=== PATIENT | male | born 1950 | race Caucasian/White ===

== ENCOUNTER → 2017-03-17 15:05 | Outpatient (CLI) | payer MEDICARE, OTHER | END | disposition home or self-care (01) | LOC: D.CT 15:05 | DX: R55 Syncope and collapse (principal) ==

== ENCOUNTER 2018-01-17 20:06 | Inpatient (IN) | payer MEDICARE, OTHER ==
[~2018-01-17] VITALS: Ht 175.3 cm; Wt 86.4 kg
--- NOTE | ~2018-01-17 | HEMODYNAMI ---
PATIENT:PEGGY COX MEDICAL RECORD: [id number] : 48 [id number] ADMISSION DATE: 01/18/18 Generatedon:01/18/201810:57 Patient name: PEGGY COX Patient #: [id number] SSN: : 1950 Date of study: 01/18/2018 Page: Of Hemodynamic Procedure Report Patient Data Patient Demographics Procedure consent was obtained First Name: PEGGY Gender: Male Last Name: KENNY : 1950 Patient #: [id number] Age: 67 year(s) Race: Unknown Additional ID: [id number] Contact details Address: [address] [place] [address] State: [place] City: [facility] Zip code: [address] Past Medical History Allergies Allergen Reaction Date Comments Reported Shellfish 01/18/2018 Admission Admission Data Admission Date: 01/18/2018 Admission Time: 3:43 Room #: D.2314 Procedure Procedure Types Cath Procedure Diagnostic Procedure LHC LH w/Coronaries Procedure Description Procedure Date Procedure Date: 01/18/2018 Procedure Start Time: 10:23 Procedure End Time: 10:57 Procedure Staff Name Function Barry Warren MD Performing Physician Viky Styles RT Monitor Allan Aragon RN Nurse Paula Baker RT Scrub Procedure Data Cath Procedure Fluoroscopy Diagnostic fluoroscopy Total fluoroscopy Time: 3.2 time: 3.2 min min Diagnostic fluoroscopy Total fluoroscopy dose: 466 dose: 466 mGy mGy Contrast Material Contrast Material Type Amount (ml) Isovue 300 47 Entry Location Entry Primary Successful Side Size Upsize Upsize Entry Closure Last ccessful Closure Location (Fr) 1 (Fr) 2 (Fr) Remarks Device Remarks Radial Right 6 Fr Mechanical artery Short Compression Estimated blood loss: 5 ml Diagnostic catheters Device Type Used For End Catheter Placement DIAGNOSTIC Geoffrey 110cm Procedure 5Fr catheter ([id number]) DIAGNOSTIC [place] 110cm 5 Procedure Fr catheter ([id number]) Procedure Complications No complications Procedure Medications Medication Administration Route Dosage 0.9% NaCl I.V. 100 ml/hr Oxygen NC 2 l/min Heparin Flush Bag added to field 2 bags (1000units/500ml NS) Lidocaine 2% added to field 20 Radial Cocktail added to field 1 syringe (Verapomil 2mg/Nitro 400mcg/Heparin 1500units) Radial Cocktail I.A. 1 syringe (Verapomil 2mg/Nitro 400mcg/Heparin 1500units) Hemodynamics Rest Heart Rate: 69 (bpm) Pressure Samples Time Site Value (mmHg) Purpose Heart Use Rate(bpm) 10:25 LV 140/17,18 EDP 87 Gradients Valve Time Site Site Mean SEP/DFP Peak To Heart Use 1 2 (mmHg) (sec/min) Peak Rate (mmHg) (bpm) Aortic 10:25 LV AO 90 Snapshots Pre Cath Intra NCS Post Cath Vital Signs Time Heart Resp SPO2 etCO2 NIBP (mmHg) Rhythm Pain Sedation Rate (ipm) (%) (mmHg) Status Level (bpm) 10:10:20 68 18 97 0 147/85(109) NSR 0 (11) 10(A) , No pain 10:15:04 69 17 100 0 129/82(117) NSR 0 (11) 10(A) , No pain 10:19:47 70 13 100 0 139/73(107) NSR 0 (11) 9(A) , No pain 10:24:28 74 14 99 0 110/70(88) NSR 0 (11) 9(A) , No pain 10:29:39 73 13 99 0 132/83(103) NSR 0 (11) 9(A) , No pain 10:34:20 72 16 100 0 133/68(103) NSR 0 (11) 9(A) , No pain 10:39:02 69 14 100 0 132/68(110) NSR 0 (11) 9(A) , No pain Medications Time Medication Route Dose Verified Delivered Reason Notes Effectiveness by by 10:14:13 0.9% NaCl I.V. 100 Allan Allan Per ml/hr Mahesh Aragon physician RN RN 10:14:23 Oxygen NC 2 l/min Lalan Allan Per Mahesh Aragon physician RN RN 10:14:34 Heparin Flush added 2 bags Allan Allan used for Bag to Mahesh Aragon procedure (1000units/500ml field RN RN NS) 10:14:43 Lidocaine 2% added 20ml Allan Allan for local to vial Yaniraigan Lorsharath anesthetic field RN RN 10:14:54 Radial Cocktail added 1 Allan Allan used for (Verapomil to syringe Lorigan Lorigan procedure 2mg/Nitro field RN RN 400mcg/Heparin 1500units) 10:23:26 Radial Cocktail I.A. 1 Allan Allan for (Verapomil syringe Lorigan Lorigan vasodilation 2mg/Nitro RN RN 400mcg/Heparin 1500units) Procedure Log Time Note 9:45:49 Time tracking: Regular hours (M-F 7:00 - 5:00) 9:45:52 Plan of Care:Hemodynamics will remain stable., Cardiac rhythm will remain stable., Comfort level will be maintained., Respiratory function will remain adequate., Patient/ family verbilizes understanding of procedure., Procedure tolerated without complication., Recovers from procedure without complications.. 9:50:24 Signed procedure consent form obtained from patient. 9:50:28 H&P Date Dictated: 01/18/2018 Within 30 days and on chart.. 9:50:35 Patient allergic to Shellfish 9:50:39 Viky Styles RT(R) sent for patient. Start room use. 10:04:39 Patient received from ICU to CCL 1 Alert and oriented. Tansferred to table in Supine position. 10:04:40 Warm blankets applied, and gurwinder hugger turned on for patient comfort. 10:04:41 Correct patient and procedure confirmed by team. 10:04:43 ECG and BP/O2 sat monitors applied to patient. 10:04:44 Full Disclosure recording started 10:08:50 Vital chart was started 10:14:13 0.9% NaCl 100 ml/hr I.V. was administered by Allan Aragon RN; Per physician; 10:14:23 Oxygen 2 l/min NC was administered by Allan Aragon RN; Per physician; 10:14:34 Heparin Flush Bag (1000units/500ml NS) 2 bags added to field was administered by Allan Aragon RN; used for procedure; 10:14:43 Lidocaine 2% 20ml vial added to field was administered by Allan Aragon RN; for local anesthetic; 10:14:54 Radial Cocktail (Verapomil 2mg/Nitro 400mcg/Heparin 1500units) 1 syringe added to field was administered by Allan Aragon RN; used for procedure; 10:16:04 Baseline sample Acquired. 10:16:07 Rhythm: sinus rhythm 10:16:10 Pre-procedure instructions explained to patient. 10:16:10 Pre-op teaching completed and patient verbalized understanding. 10:16:12 Family in waiting room. 10:16:14 Patient NPO since Midnight. 10:16:29 allergic to shellfish 10:16:32 Was the patient premedicated? Yes 10:16:34 Is patient on blood thinner?Yes 10:16:42 PRE LOADED PLAVIX 10:16:44 Patient diabetic? No. 10:16:46 Previous problem with sedation/anesthesia? No ? 10:16:48 Snore? Yes 10:16:49 Sleep apnea? Yes 10:16:50 Deviated septum? No 10:16:51 Opens mouth fully? Yes 10:16:51 Sticks out tongue? Yes 10:16:53 Airway obstruction? No ? 10:16:55 Dentures? No ? 10:16:57 Modified Pato's test Ulnar < 7 seconds 10:16:58 Patient pain scale 0/10 ?. 10:17:02 IV patent on arrival in right hand with 0.9% NaCl at [facility]. 10:17:05 Lab results completed and on chart. 10:17:07 Right Radial & Right Groin area was prepped with chlora-prep and draped in sterile fashion 10:17:09 Alarms reviewed by R. N. 10:17:09 Sharps counted by scrub and verified by R.N. 10:17:10 --------ALL STOP TIME OUT------ 10:17:11 Final Timeout: patient, procedure, and site verified with staff and physician. All members of the team are in agreement. 10:17:12 Right Radial & Right Groin site verified by team. 10:17:15 Physical assessment completed. ASA score P 2 - A patient with mild systemic disease as per Barry Warren MD. 10:17:19 Sedation plan: IV Moderate Sedation Medication:Versed, Fentanyl 10:17:22 Use device set Radial Dx or PCI 10:17:23 ACIST Syringe (78009) opened to sterile field. 10:17:25 Bag Decanter (2002S) opened to sterile field. 10:17:25 ACIST Hand Control (09610) opened to sterile field. 10:17:26 ACIST Manifold (29481) opened to sterile field. 10:17:27 Tegaderm 4 x 4 (1626W) opened to sterile field. 10:17:29 Medline Cath Pack ([id number]) opened to sterile field. 10:17:30 DIAGNOSTIC WIRE .035 260cm J wire (005697) opened to sterile field. 10:17:30 MBrace Wrist Support ([id number]) opened to sterile field. 10:17:32 SHEATH 6Fr Prelude Radial ([id number]) opened to sterile field. 10:22:48 Procedure started. 10:23:00 Local anesthetic to right radial artery with Lidocaine 2% by Barry Warren MD.INITIAL ACCESS ONLY 10:23:26 Radial Cocktail (Verapomil 2mg/Nitro 400mcg/Heparin 1500units) 1 syringe I.A. was administered by Allan Aragon RN; for vasodilation; 10:23:31 A 6 Fr Short sheath was inserted into the Right Radial artery 10:23:45 Zero performed for pressure channel P1 10:24:01 A DIAGNOSTIC Geoffrey 110cm 5Fr catheter (377416) was advanced over the wire and used for Procedure. 10:25:23 LV gram done using PATEL 10:25:26 Injector settings: Ml/sec: 12, Volume: 8, 10:25:27 LV hemodynamics recorded. 10:25:51 EF : 60 % 10:27:16 RCA angiography performed. 10:28:38 UNABLE TO ENGAGE LEFT CORONARY 10:28:39 Catheter exchanged over wire. 10:29:14 A DIAGNOSTIC [place] 110cm 5 Fr catheter (326725) was advanced over the wire and used for Procedure. 10:31:30 LCA angiography performed. 10:31:38 Catheter removed. 10:31:42 Procedure ended.(Physican Out) 10:34:34 TR BAND Standard ([id number]) opened to sterile field. 10:34:41 Sheath removed intact; hemostasis achieved with Mechanical Compression to the Right Radial artery. 10:35:51 Fluoroscopy time 03.20 minutes. 10:35:54 Fluoroscopy dose: 466 mGy 10:35:54 Flurop Dose total: 466 10:37:46 Contrast amount:Isovue 300 47ml. 10:37:48 Sharps counted by scrub and verified by R.N. 10:37:50 TR band inflated with 10cc of air. 10:37:54 Post-procedure physical assessment completed. ASA score P 2 - A patient with mild systemic disease as per Barry Warren MD. 10:38:16 Post procedure rhythm: sinus rhythm 10:38:20 Estimated blood loss: 5 ml 10:38:21 Post procedure instruction explained to patient.Patient verbalizes understanding. 10:38:22 Patient needs reinforcement of post procedure teaching. 10:39:09 Procedure and supply charges have been captured, reviewed, submitted and are correct. 10:39:12 Procedure Complication : No complications 10:39:14 Vital chart was stopped 10:39:14 See physician's report for complete and final results. 10:57:08 Report given to ICU. 10:57:11 Patient transfered to ICU with Bed. 10:57:12 Procedure ended. 10:57:12 Full Disclosure recording stopped 10:57:17 End room use (Document Last) Device Usage Item Name Manufacture Quantity Catalog Number Hospital Part Current M inimal Lot# / Charge Number Stock Stock Serial# Code ACIST Syringe Acist 1 13725 460582 822396 433450 2 0 (91068) [employer] Inc Bag Decanter Microtek 1 2001S 628437 27557 591595 5 (2001S) Medical Inc. ACIST Hand Acist 1 01138 425080 012540 773626 5 Control (65415) Medical Systems Inc ACIST Manifold Acist 1 25507 868752 273467 189979 5 (16969) Medical Systems Inc Tegaderm 4 x 4 3M 1 1626W 417287 426411 657721 5 (1626W) Medline Cath Cardinal 1 [id number] 577195 31419 668928 5 Pack Health ([id number]) DIAGNOSTIC WIRE St Vel 1 110623 611877 617013 824662 3 0 .035 260cm J wire (234503) MBrace Wrist Advanced 1 140-0250-00 990861 22237 300800 5 Support Vascular ([id number]) Dynamics SHEATH 6Fr Merit 1 [id number] 778905 254967 490893 5 Prelude Radial Medical ([id number]) DIAGNOSTIC Terumo 1 40-0963 708718 261083 512145 5 Geoffrey 110cm 5Fr catheter (242680) DIAGNOSTIC Terumo 1 40-2087 300676 731246 346740 5 [place] 110cm 5 Fr catheter (997772) TR BAND Terumo 1 [id number] 021612 672357 720603 4 0 Standard (MNY73VOS) Signature Audit [place] Stage Time Signature Unsigned Intra-Procedure 01/18/2018 Viky Styles 10:57:40 AM RT(R) Signatures Monitor : Viky Styles Signature : RT Date : Time : [address] [address]
--- NOTE | ~2018-01-17 | EC ---
PATIENT:PEGGY COX DATE OF SERVICE: 01/18/18 SEX: M MEDICAL RECORD: [id number] DATE OF : [birth year] LOCATION:D.M2 D.211 AGE OF PATIENT: 67 ADMISSION DATE: 01/18/18 REFERRING PHYSICIAN: INTERPRETING PHYSICIAN: ROSENDO COLUNGA MD ECHOCARDIOGRAM REPORT ECHO CHARGES 4 ECHO COMPLETE Date: 01/19 CLINICAL DIAGNOSIS: GA ECHOCARDIOGRAPHIC MEASUREMENTS (adult normal given) AC root (d.<3.7cm) 3.5 cm LV Septum d (<1.2 cm> 1.9 cm Valve Excursion 2.0 cm LV Septum (systole) 2.5 cm Left Atria (s.<4.0cm> 3.5 cm LVPW d(<1.2cm) 1.6 cm RV (d.<2.3cm) 2.1 cm LVPW (sytole) 2.1 cm LV diastole(<5.6CM) 4.9 cm MV E-F(>70mm/sec) cm LV systole 3.3 cm LVOT Diameter 1.8 cm MV exc.(>10mm) cm Est.ejection fraction (50-75%) % DOPPLER: LVIT cm/sec A 56.0 cm/sec E 63.0 cm/sec LA cm/sec RVSP 30.0 mmHg LVOT 81.0 cm/sec AOP1/2T m/s Asc. Ao 150 cm/sec RVOT 67.0 cm/sec RA cm/sec PA 117 cm/sec AV Gradient Peak 9.0 mmHg AV Mean 4.3 mmHg AV Area 1.3 cm MV Gradient Peak 3.1 mmHg MV Mean 1.0 mmHg MV Area cm COMMENTS: Research And Development Engineer: Kathya SZYMANSKIOE Slimer: 4 Dr. Colunga TAPE# PACS Pericardial Effusion N DATE OF SERVICE: PROCEDURE: Transthoracic echocardiogram. FINDINGS: 1. The patient has evidence of moderate concentric left ventricular hypertrophy. Ejection fraction is 55% to 60%. Inflow characteristics consistent with diastolic dysfunction. 2. The left atrium is normal. 3. The aortic valve is normal. ECHOCARDIOGRAM REPORT [id number] PEGGY COX 4. The mitral valve has trace mitral regurgitation. 5. Tricuspid valve is normal. 6. Pericardium is normal. 7. Right ventricle is normal. 8. The right atrium is normal. 9. The pulmonic valve has trace to mild pulmonic insufficiency, otherwise normal. CONCLUSIONS: The patient has evidence of hypertensive heart disease, otherwise normal echocardiogram for stated age. TRANSINT:[id number] Voice Confirmation ID: [id number] DOCUMENT ID: [id number] ROSENDO COLUNGA MD at 1458 CC: [id number] DICTATION DATE: 01/21/18 0831 INCINERATOR PLANT SUPERVISOR: 01/21/18 1035 DIS IN 01/21/18 [place] [address] [place] [address]
--- NOTE | ~2018-01-17 | OP ---
PATIENT NAME: PEGGY COX MEDICAL RECORD: [id number] :48 LOCATION:D.M2 D.2119 ADMISSION DATE:01/18/18 SURGEON: BARRY COLUNGA MD DATE OF OPERATION: 01/18/2018 PROCEDURE: Left heart cath, LV gram, coronary angiogram. GEOPHYSICS SCIENTIST: Barry Colunga MD PROCEDURE IN DETAIL: The patient was brought to cardiac catheterization lab in stable condition. Both groins and the right wrist were sterilely prepped and draped. The patient had a 6-Cameroonian sheath placed in the right radial artery in a retrograde fashion using modified Seldinger technique. We then intubated the left coronary artery, the right coronary artery, and the left ventricular cavity respectively for complete left heart catheterization. FINDINGS: 1. Left main is shown to have a distal 80% stenosis. 2. The LAD is shown to have an 80% mid stenosis. The first diagonal is shown to have a mid 70% stenosis. 3. The circumflex is nondominant with a terminal obtuse marginal branch with 99% stenosis. 4. The RCA is a large, dominant vessel with diffuse atherosclerotic changes, a chronic healed dissection in the mid to distal portion that is 80% stenosed, but has still KOTA 3 flow. 5. The PDA has a mid 80% stenosis coming off the right coronary artery. 6. Hemodynamics: Left ventricular ejection fraction 65%. End-diastolic pressure was normal. IMPRESSION: Severe multivessel coronary artery disease with preserved LV systolic function. RECOMMENDATIONS: Coronary artery bypass grafting. TRANSINT:[id number] Voice Confirmation ID: [id number] DOCUMENT ID: [id number] BARRY COLUNGA MD at 0837 CC: [id number] DICTATION DATE: 01/18/18 1035 THAI MASSEUR: 01/18/18 1135 [place] [address]
[2018-01-17] MEDS ORDERED: ULTRAM50 MG PO (20:21)
[2018-01-17] MEDS ORDERED: BAYER CHEWABLE81 MG PO (20:21)
[2018-01-17] MEDS ORDERED: COZAAR50 MG PO (20:21)
[2018-01-17] MEDS ORDERED: CYMBALTA60 MG PO (20:22)
[2018-01-17 21:14] VITALS: BP 183/91
[2018-01-17 22:08] LABS: BASOPHILS 0.4 % (0-2); EOSINOPHILS 3.7 % (0-7); HEMATOCRIT 39.8 % (42.0-54.0); HEMOGLOBIN 13.8 g/dL (13.5-17.5); IMMATURE GRANULOCYTES 0.7 % (0-5); LYMPHOCYTES 29.3 % (15-50); MCH 30.6 pg (26.0-34.0); MCHC 34.7 g/dL (31.0-37.0); MCV 88.2 fL (80.0-100.0); MONOCYTES 9.8 % (2-11); NEUTROPHILS 56.1 % (40-80); PLATELET COUNT 238 10x3/uL (130-400); RBC 4.51 10x6/uL (4.20-6.10); RDW 13.2 % (11.5-14.5); WBC 9.2 10x3/uL (4.8-10.8)
[2018-01-17 22:25] LABS: ALBUMIN 3.4 g/dL (3.4-5.0); ANION GAP 11.4 mmol/L (8-16); BILIRUBIN - TOTAL 0.31 mg/dL (0.2-1.3); CALCIUM 8.6 mg/dL (8.5-10.1); CARBON DIOXIDE 29.5 mmol/L (21.0-32.0); CREATININE - SERUM 1.3 mg/dL (0.6-1.3); POTASSIUM - SERUM 3.9 mmol/L (3.5-5.1); PROTEIN - SERUM 6.6 g/dL (6.4-8.2)
[2018-01-17 22:29] VITALS: BP 199/104
[2018-01-17 22:48] LABS: TROPONIN-I 0.116 ng/mL (0.000-0.060)
[2018-01-17 23:00] VITALS: BP 195/106
[2018-01-18] VITALS (22 sets, daily range): BP systolic 127–180; BP diastolic 56–96; Ht 175.3 cm; Wt 86.4 kg
[2018-01-18 09:02] LABS: BASOPHILS 0.4 % (0-2); EOSINOPHILS 3.7 % (0-7); HEMATOCRIT 39.6 % (42.0-54.0); HEMOGLOBIN 13.3 g/dL (13.5-17.5); IMMATURE GRANULOCYTES 0.5 % (0-5); LYMPHOCYTES 25.6 % (15-50); MCH 29.6 pg (26.0-34.0); MCHC 33.6 g/dL (31.0-37.0); MCV 88.2 fL (80.0-100.0); MONOCYTES 8.5 % (2-11); NEUTROPHILS 61.3 % (40-80); PLATELET COUNT 223 10x3/uL (130-400); RBC 4.49 10x6/uL (4.20-6.10); RDW 13.1 % (11.5-14.5); WBC 8.1 10x3/uL (4.8-10.8)
[2018-01-18 09:52] LABS: CALC OSMOLALITY 284 mosm/kg (275-300); CALCIUM 8.4 mg/dL (8.5-10.1); CARBON DIOXIDE 28.2 mmol/L (21.0-32.0); CHLORIDE - SERUM 105 mmol/L (98-107); CKMB 1.6 U/L (0.0-3.6); CREATINE KINASE 84 UL (21-232); CREATININE - SERUM 1.3 mg/dL (0.6-1.3); GLUCOSE 125 mg/dL (74-106); POTASSIUM - SERUM 4.3 mmol/L (3.5-5.1); SODIUM 141 mmol/L (136-145); UREA NITROGEN 20 mg/dL (7-18); eGFR NON AFRICAN AMERICAN 58 mL/min (90-120)
[2018-01-18 09:57] LABS: TROPONIN-I 0.071 ng/mL (0.000-0.060)
[2018-01-18 15:19] LABS: CKMB 1.1 U/L (0.0-3.6); CREATINE KINASE 80 UL (21-232); TROPONIN-I 0.044 ng/mL (0.000-0.060)
[2018-01-18 22:02] LABS: CKMB 1.1 U/L (0.0-3.6); CREATINE KINASE 80 UL (21-232)
[2018-01-19] VITALS (7 sets, daily range): BP systolic 128–190; BP diastolic 71–99
[2018-01-19 06:05] LABS: PLT FUNCT.(P2Y12) PLAVIX 157 PRU (194-418)
[2018-01-20 00:59] VITALS: BP 141/72
[2018-01-20 05:14] VITALS: BP 160/99
[2018-01-20 07:30] VITALS: BP 142/74
[2018-01-20 11:40] VITALS: BP 138/71
[2018-01-20 16:21] VITALS: BP 143/69
[2018-01-20 20:07] LABS: BASOPHILS 0.4 % (0-2); EOSINOPHILS 2.5 % (0-7); HEMATOCRIT 42.8 % (42.0-54.0); HEMOGLOBIN 14.7 g/dL (13.5-17.5); IMMATURE GRANULOCYTES 0.8 % (0-5); LYMPHOCYTES 26.8 % (15-50); MCH 30.2 pg (26.0-34.0); MCHC 34.3 g/dL (31.0-37.0); MCV 87.9 fL (80.0-100.0); MEAN PLATELET VOLUME 9.2 fL (7.4-10.4); NEUTROPHILS 59.5 % (40-80); PLATELET COUNT 258 10x3/uL (130-400); RBC 4.87 10x6/uL (4.20-6.10); RDW 13.2 % (11.5-14.5); WBC 10.4 10x3/uL (4.8-10.8)
[2018-01-20 20:14] LABS: APTT 27.3 SECONDS (22.8-39.4); INR 0.95 (0.85-1.17); PROTIME 12.3 SECONDS (11.6-15.0)
[2018-01-20 20:30] LABS: ALBUMIN 3.4 g/dL (3.4-5.0); ANION GAP 11.8 mmol/L (8-16); BILIRUBIN - TOTAL 0.38 mg/dL (0.2-1.3); CALCIUM 8.5 mg/dL (8.5-10.1); CARBON DIOXIDE 26.9 mmol/L (21.0-32.0); CREATININE - SERUM 1.6 mg/dL (0.6-1.3); PHOSPHOROUS 3.8 mg/dL (2.5-4.9); POTASSIUM - SERUM 3.7 mmol/L (3.5-5.1); PROTEIN - SERUM 6.9 g/dL (6.4-8.2); T4 THYROXIN - FREE 0.92 ng/dL (0.76-1.46); THYROID STIMULATING HORMONE 1.66 uIU/mL (0.36-3.74); URIC ACID 5.3 mg/dL (2.6-7.2)
[2018-01-20 21:09] VITALS: BP 178/78
[2018-01-21 05:50] VITALS: BP 131/73
[2018-01-21 08:25] VITALS: BP 130/87
[2018-01-21] MEDS ORDERED: METOPROLOL TART50 MG PO (10:07)
[2018-01-21] MEDS ORDERED: COZAAR50 MG PO (10:07)
[2018-01-21] MEDS ORDERED: NITROQUICK0.4 MG SL (10:08)
[2018-01-21] MEDS ORDERED: HYDRALAZINE HCL25 MG PO (10:08)
[2018-01-21] MEDS ORDERED: NICODERM C1 PATCH .1 TRANSDERM (10:09)
[2018-01-21 11:43] VITALS: BP 136/66
[2018-01-21 14:21] LABS: APPEARANCE CLEAR (CLEAR); COLOR YELLOW (YELLOW)
[2018-01-21 14:22] LABS: BILIRUBIN NEGATIVE (NEGATIVE); GLUCOSE NEGATIVE (NEGATIVE); KETONE NEGATIVE (NEGATIVE); MUCUS <1+ /lpf (NONE SEEN); NITRITE NEGATIVE (NEGATIVE); PROTEIN TRACE mg/dL (NEGATIVE); UROBILINOGEN NORMAL (NORMAL)
[2018-01-21 15:10] VITALS: BP 128/76
== END 2018-01-21 12:40 | disposition home or self-care (01) | DRG 287 ==
LOC: D.ER 20:06 → OBSVTIME 01-18 03:43 → D.EDHOLD 01-18 03:43 → D.ICU 01-18 03:43 → D.M2 01-18 15:03 → D.ICU 01-18 15:03 → D.M2 01-18 15:03
PROVIDERS: Family Medicine; Internal Medicine Cardiovascular Disease; Thoracic Surgery (Cardiothoracic Vascular Surgery)
PROC: B2151ZZ Fluoroscopy of Left Heart using Low Osmolar Contrast (ICD-10-PCS; 2018-01-18)
PROC: 4A023N7 Measurement of Cardiac Sampling and Pressure, Left Heart, Percutaneous Approach (ICD-10-PCS; 2018-01-18)
PROC: B2111ZZ Fluoroscopy of Multiple Coronary Arteries using Low Osmolar Contrast (ICD-10-PCS; principal; 2018-01-18 09:50)
DX: I25.10 Atherosclerotic heart disease of native coronary artery without angina pectoris (principal); I16.9 Hypertensive crisis, unspecified

== ENCOUNTER 2018-01-25 05:00 | Inpatient (IN) | payer MEDICARE, OTHER ==
[~2018-01-25] VITALS: Ht 175.3 cm; Wt 87.6 kg
[2018-01-25] VITALS (40 sets, daily range): BP systolic 87–130; BP diastolic 35–79; BMI 28.4; BMI 28.5
--- NOTE | ~2018-01-25 | OP ---
PATIENT NAME: PEGGY COX MEDICAL RECORD: [id number] :[birth year] LOCATION:D.FELISA DDonnaCV02 ADMISSION DATE:01/25/18 SURGEON: RAMON FORD MD DATE OF OPERATION: 01/25/2018 SURGEON: Ramon Ford MD PUSHER RUNNER: KAMALJIT Reid MD and LD Major PREOPERATIVE DIAGNOSIS: Coronary artery disease. POSTOPERATIVE DIAGNOSIS: Coronary artery disease. PROCEDURES PERFORMED: 1. Coronary artery bypass graft times 5 (left internal mammary artery to LAD, reverse saphenous vein graft from aorta to proximal branch obtuse marginal, and from the side of that vein graft to the first diagonal distally; from aorta to posterior descending artery and from the side of that vein branch to the posterolateral branch of the right coronary artery distally) 2. Endoscopic vein harvest. ANESTHESIA: General endotracheal anesthesia. ESTIMATED BLOOD LOSS: Total cardiopulmonary bypass with Cell Saver retransfusion. COMPLICATIONS: None. SPECIMENS: None. CONDITION: Stable. DISPOSITION: ICU. OPERATIVE FINDINGS: 1. Good quality greater saphenous vein harvested from the mid-calf upward with endoscopic harvest and 2 bridging incisions in the lower leg. 2. Good quality left internal mammary artery, the LAD was intramyocardial 2.0-mm vessel, a 1.5-mm vessel passed distally to the apex and there was good Doppler signal after anastomosis after cardiopulmonary bypass and after protamine. 3. The proximal branch of the obtuse marginal was larger and less diseased to the tube, but it was still a 1.5-mm vessel with severe disease. 4. The first diagonal was a 1.5-mm vessel with severe disease. It was a proximal graft to the side of the obtuse marginal vein graft, after removing the crossclamp, but prior to performing the [id number]-dj-tlwm anastomosis there was torrential backbleeding from this vessel after the internal mammary flow had also been opened. 5. Posterior descending artery distal to a large amount of mid vessel plaque was 1.5-mm with severe disease. 6. Posterolateral branch of the right coronary was 1.5-mm vessel, proximal was an end-to-side vessel of the posterior descending artery. The patient had an enlarged and fatty heart, transesophageal echocardiography revealed good contractility with mild left ventricular hypertrophy. No valvular incompetence or stenosis. OPERATIVE REPORT [id number] PEGGY COX 7. Bilateral hyperexpanded and hyperpigmented lungs consistent with smoking. 8. Initially sinus bradycardia, atrial fibrillation after revascularization prior to cardiopulmonary bypass, controlled with amiodarone, resulting in significant bradycardia and then atrioventricular paced, but eventually a sinus rhythm by about 30 minutes from separation from cardiopulmonary bypass. 9. Right common femoral artery 5-Turkmen arterial line placed for separation from cardiopulmonary bypass. INDICATION: The patient with acute coronary syndrome, Plavix therapy, stable, discharged home, Plavix allowed to wear off, multivessel coronary artery disease. PROCEDURE IN DETAIL: The patient was brought to the operating suite. General anesthesia was obtained. The patient was prepped and draped. Greater saphenous vein was harvested as described above from the right leg. Side branches divided with electrocautery and the lower leg side branches were clipped, vessels ligated proximally and distally and removed. Side branches were clipped or tied. Later, the leg was closed in 2 layers. Median sternotomy incision was made. Subcutaneous tissue was divided with electrocautery. Sternum was divided with a saw. Left hemisternum was elevated. Left pleural cavity was entered. Left internal mammary vein was taken as a pedicle graft. Sternal retractor was placed. Pericardium was opened. Heparin was given. The aorta was cannulated between concentric pursestrings. Dual stage venous cannula was inserted. The internal mammary was clipped distally and made ready for anastomosis. Activated clotting time was appropriately elevated. The patient was placed in cardiopulmonary bypass. Sites for distal anastomoses were selected. The patient was only cooled to 35 degrees due to 3+ cold agglutinins. The antegrade cardioplegia needle was inserted. Crossclamp was placed. Cardioplegia given antegrade including I completed vein grafts at 15 to 20 minute intervals. The distal anastomosis was performed in standard technique and proximal anastomosis with a single cross-clamp technique. Then, the crossclamp was removed. The aortic root was de-aired and flow restored and the 2 vein grafts were proximal anastomosed on the aorta. Then end-to-side anastomosis to the cxdn-gc-[id number] anastomoses, all distal inspected for bleeding. The patient's dysrhythmia controlled, weaned off cardiopulmonary bypass and was stable. The patient was decannulated. Atrial and ventricular pacing wires had been placed. Drains were placed in the mediastinum and left pleural cavity. Hemostasis was assured and protamine was given. Thorough irrigation was undertaken. Pericardial fat was loosely reapproximated over the aorta and over lower part of the right ventricle. Left chest evacuated and irrigated. The internal mammary harvest site was hemostatic. The sternum was closed with wires. Fascia was closed. Subcutaneous tissue was closed. Skin was closed. Dermabond was placed. The needle and sponge counts reported as correct and the patient was taken to ICU in stable condition. TRANSINT:[id number] Voice Confirmation ID: [id number] DOCUMENT ID: [id number] OPERATIVE REPORT [id number] PEGGY COX DANIEL W MD at 1613 CC: [id number] DICTATION DATE: 01/25/18 1429 FREELANCE DIRECTOR: 01/25/18 1534 ADM IN [place] [address] [place] [address]
--- NOTE | ~2018-01-25 | EC ---
PATIENT:PEGGY COX DATE OF SERVICE: 01/25/18 SEX: M MEDICAL RECORD: [id number] DATE OF : [birth year] LOCATION:[place] [address] AGE OF PATIENT: 67 ADMISSION DATE: 01/25/18 REFERRING PHYSICIAN: INTERPRETING PHYSICIAN: ROSENDO COLUNGA MD ECHOCARDIOGRAM REPORT ECHO CHARGES 5 ECHO LIMITED Date: 01/29 CLINICAL DIAGNOSIS: LV FUNCTION ECHOCARDIOGRAPHIC MEASUREMENTS (adult normal given) AC root (d.<3.7cm) cm LV Septum d (<1.2 cm> cm Valve Excursion cm LV Septum (systole) cm Left Atria (s.<4.0cm> cm LVPW d(<1.2cm) cm RV (d.<2.3cm) cm LVPW (sytole) cm LV diastole(<5.6CM) cm MV E-F(>70mm/sec) cm LV systole cm LVOT Diameter cm MV exc.(>10mm) cm Est.ejection fraction (50-75%) % DOPPLER: LVIT cm/sec A cm/sec E cm/sec LA cm/sec RVSP mmHg LVOT 102 cm/sec AOP1/2T m/s Asc. Ao 181 cm/sec RVOT cm/sec RA cm/sec PA cm/sec AV Gradient Peak 13.1 mmHg AV Mean 6.2 mmHg AV Area cm MV Gradient Peak mmHg MV Mean mmHg MV Area cm COMMENTS: Front Worker: Tarik ESCALONA Commutator V Ring Assembler: 4 Dr. Colunga TAPE# PACS Pericardial Effusion N DATE OF SERVICE: FINDINGS: Technically difficult study, is limited for LV systolic function. Overall ejection fraction appears to be in the 50% to 55% range. There are no obvious regional wall motion abnormalities, but the study is very limited. It may be reasonable to repeat this with contrast if the information is clinically very valuable. TRANSINT:[id number] Voice Confirmation ID: [id number] DOCUMENT ID: [id number] ECHOCARDIOGRAM REPORT [id number] KENNYPEGGY CORONADO ROSENDO COLUNGA MD at 0749 CC: [id number] DICTATION DATE: 01/30/18 2244 CROSSING SUPERVISOR: 01/31/18 0539 DIS IN 02/01/18 [place] [address] [place] [address]
--- NOTE | ~2018-01-25 | TEE ---
PATIENT:PEGGY COX MEDICAL RECORD: [id number] LOCATION:[place] [address] AGE OF PATIENT: 67 ADMISSION DATE: 01/25/18 SEX: M REFERRING PHYSICIAN: INTERPRETING PHYSICIAN: ROSENDO COLUNGA MD TRANSESOPHAGEAL ECHOCARDIOGRAM Date: 01/25/18 BAHMAN CHARGE Y INDICATIONS: CABG PREMEDICATIONS: PATIENT'S RESPONSE PROCEDURE DOPPLER MEASUREMENTS: LVIT LA PA RA LVOT RVOT Asc. Ao AV Gradient Peak AV Mean AV Area MV Gradient Peak MV Mean MV Area INTERPRETATION: Doppler: 2-D: COLOR FLOW DOPPLER NORMAL SALINE STUDY: MISCELLANOUS: DIAGNOSIS: PLAN: Motel Clerk:4 Dr. Colunga Railroad Car Repair Supervisor: Jhonatan PINEDO COMMENTS: DATE OF SERVICE: This is an intraoperative transesophageal echocardiogram. IMPRESSION: 1. The patient underwent an intraoperative transesophageal echocardiogram. We had excellent visualization of the aortic valve, which was normal. The right-sided structures appear to have a catheter transversing from the right atrium and the right ventricle and those structures appear to be normal in TRANSESOPHAGEAL ECHOCARDIOGRAM REPORT [id number] THANH COX dimension, structure and function. 2. The mitral valve appears to be normal. Submitral chordal apparatus appears to be normal. The left ventricular function preoperatively appears to be preserved in the 55% range. There appears to be mild left ventricular hypertrophy. In the postoperative period, LV function appears to be hyperdynamic in the 65% to 70%. There is no distinct wall motion abnormalities. TRANSINT:[id number] Voice Confirmation ID: [id number] DOCUMENT ID: [id number] at 1458 CC: [id number] DICTATION DATE: 01/26/18 0856 BRIDGE REPAIR CREW PERSON: 01/26/18 1356 ADM IN [facility] [address] [place] [address]
[~2018-01-25 05:00] MED LIST: BAYER CHEWABLE81 MG PO; COZAAR50 MG PO; CYMBALTA60 MG PO; HYDRALAZINE HCL25 MG PO; METOPROLOL TART50 MG PO; NICODERM C1 PATCH .1 TRANSDERM; NITROQUICK0.4 MG SL; ULTRAM50 MG PO
[2018-01-25 05:50] LABS: BASOPHILS 0.4 % (0-2); EOSINOPHILS 3.6 % (0-7); HEMATOCRIT 43.5 % (42.0-54.0); IMMATURE GRANULOCYTES 1.3 % (0-5); LYMPHOCYTES 28.5 % (15-50); MCH 30.2 pg (26.0-34.0); MCHC 34.5 g/dL (31.0-37.0); MCV 87.5 fL (80.0-100.0); MEAN PLATELET VOLUME 9.4 fL (7.4-10.4); MONOCYTES 10.6 % (2-11); NEUTROPHILS 55.6 % (40-80); PLATELET COUNT 272 10x3/uL (130-400); RBC 4.97 10x6/uL (4.20-6.10); WBC 10.8 10x3/uL (4.8-10.8)
[2018-01-25 06:41] LABS: ALBUMIN 3.7 g/dL (3.4-5.0); ANION GAP 12.7 mmol/L (8-16); BILIRUBIN - TOTAL 0.4 mg/dL (0.2-1.3); CALCIUM 8.7 mg/dL (8.5-10.1); CARBON DIOXIDE 24.7 mmol/L (21.0-32.0); CREATININE - SERUM 1.5 mg/dL (0.6-1.3); PHOSPHOROUS 4.4 mg/dL (2.5-4.9); POTASSIUM - SERUM 4.4 mmol/L (3.5-5.1); PROTEIN - SERUM 6.8 g/dL (6.4-8.2); T4 THYROXIN - FREE 0.92 ng/dL (0.76-1.46); THYROID STIMULATING HORMONE 1.31 uIU/mL (0.36-3.74); URIC ACID 6.3 mg/dL (2.6-7.2)
[2018-01-25 06:55] LABS: INR 0.97 (0.85-1.17); PROTIME 12.3 SECONDS (11.6-15.0)
[2018-01-25 07:01] LABS: APTT 30.2 SECONDS (22.8-39.4)
[2018-01-25 07:08] LABS: APPEARANCE CLEAR (CLEAR); BILIRUBIN NEGATIVE (NEGATIVE); COLOR YELLOW (YELLOW); GLUCOSE NEGATIVE (NEGATIVE); KETONE NEGATIVE (NEGATIVE); NITRITE NEGATIVE (NEGATIVE); PROTEIN NEGATIVE (NEGATIVE); UROBILINOGEN NORMAL (NORMAL)
[2018-01-26] VITALS (31 sets, daily range): BP systolic 90–128; BP diastolic 48–65; Ht 175.3 cm; Wt 87.6 kg
[2018-01-26 05:59] LABS: HEMATOCRIT 33.7 % (42.0-54.0); MCH 29.3 pg (26.0-34.0); MCHC 32.6 g/dL (31.0-37.0); MCV 89.6 fL (80.0-100.0); MEAN PLATELET VOLUME 9.3 fL (7.4-10.4); RBC 3.76 10x6/uL (4.20-6.10); RDW 13.9 % (11.5-14.5); WBC 23.5 10x3/uL (4.8-10.8)
[2018-01-26 06:21] LABS: ALBUMIN 2.5 g/dL (3.4-5.0); ANION GAP 16.8 mmol/L (8-16); BILIRUBIN - TOTAL 0.4 mg/dL (0.2-1.3); CARBON DIOXIDE 23.2 mmol/L (21.0-32.0); PROTEIN - SERUM 4.8 g/dL (6.4-8.2)
[2018-01-26 06:26] LABS: CALCIUM 6.6 mg/dL (8.5-10.1)
[2018-01-27] VITALS (22 sets, daily range): BP systolic 95–134; BP diastolic 45–76
[2018-01-27 06:26] LABS: HEMATOCRIT 27.8 % (42.0-54.0); MCHC 32.4 g/dL (31.0-37.0); MCV 89.7 fL (80.0-100.0); MEAN PLATELET VOLUME 9.7 fL (7.4-10.4); RBC 3.1 10x6/uL (4.20-6.10); RDW 14.1 % (11.5-14.5)
[2018-01-27 06:47] LABS: ALBUMIN 2.4 g/dL (3.4-5.0); ANION GAP 11.2 mmol/L (8-16); BILIRUBIN - TOTAL 0.47 mg/dL (0.2-1.3); CARBON DIOXIDE 27.2 mmol/L (21.0-32.0); CREATININE - SERUM 2.1 mg/dL (0.6-1.3); POTASSIUM - SERUM 4.4 mmol/L (3.5-5.1)
[2018-01-28] VITALS (23 sets, daily range): BP systolic 94–144; BP diastolic 41–93
[2018-01-28 02:29] LABS: APPEARANCE HAZY (CLEAR); BACTERIA NONE SEEN /hpf (NONE SEEN); BILIRUBIN NEGATIVE (NEGATIVE); COLOR YELLOW (YELLOW); EPITHELIAL CELLS NSEEN /hpf (0-5); GLUCOSE NEGATIVE (NEGATIVE); KETONE NEGATIVE (NEGATIVE); NITRITE NEGATIVE (NEGATIVE); PROTEIN 1+ mg/dL (NEGATIVE); SPECIFIC GRAVITY 1.015 (1.005-1.020); UROBILINOGEN NORMAL (NORMAL); WHITE CELLS - URINE NSEEN /hpf (0-5)
[2018-01-28 06:49] LABS: HEMATOCRIT 25.4 % (42.0-54.0); HEMOGLOBIN 8.4 g/dL (13.5-17.5); MCH 29.4 pg (26.0-34.0); MCHC 33.1 g/dL (31.0-37.0); MCV 88.8 fL (80.0-100.0); MEAN PLATELET VOLUME 9.7 fL (7.4-10.4); RBC 2.86 10x6/uL (4.20-6.10); RDW 13.9 % (11.5-14.5); WBC 23.3 10x3/uL (4.8-10.8)
[2018-01-28 06:55] LABS: ALBUMIN 2.3 g/dL (3.4-5.0); ANION GAP 12.8 mmol/L (8-16); BILIRUBIN - TOTAL 0.77 mg/dL (0.2-1.3); CALCIUM 7.3 mg/dL (8.5-10.1); CREATININE - SERUM 2.1 mg/dL (0.6-1.3); POTASSIUM - SERUM 3.8 mmol/L (3.5-5.1); PROTEIN - SERUM 5.5 g/dL (6.4-8.2)
[2018-01-29] VITALS (23 sets, daily range): BP systolic 112–152; BP diastolic 43–94
[2018-01-29 06:06] LABS: HEMATOCRIT 26.5 % (42.0-54.0); HEMOGLOBIN 8.8 g/dL (13.5-17.5); MCH 29.8 pg (26.0-34.0); MCHC 33.2 g/dL (31.0-37.0); MCV 89.8 fL (80.0-100.0); MEAN PLATELET VOLUME 9.5 fL (7.4-10.4); RBC 2.95 10x6/uL (4.20-6.10); RDW 13.7 % (11.5-14.5); WBC 21.8 10x3/uL (4.8-10.8)
[2018-01-29 07:23] LABS: BILIRUBIN - TOTAL 0.86 mg/dL (0.2-1.3); CALCIUM 7.4 mg/dL (8.5-10.1); CREATININE - SERUM 1.9 mg/dL (0.6-1.3)
[2018-01-29 07:28] LABS: ALBUMIN 2.3 g/dL (3.4-5.0); ANION GAP 15.2 mmol/L (8-16); POTASSIUM - SERUM 3.2 mmol/L (3.5-5.1)
[2018-01-30] VITALS (22 sets, daily range): BP systolic 97–158; BP diastolic 41–97
[2018-01-30 06:59] LABS: HEMATOCRIT 23.2 % (42.0-54.0); HEMOGLOBIN 7.8 g/dL (13.5-17.5); MCH 29.9 pg (26.0-34.0); MCHC 33.6 g/dL (31.0-37.0); MCV 88.9 fL (80.0-100.0); MEAN PLATELET VOLUME 9.7 fL (7.4-10.4); RBC 2.61 10x6/uL (4.20-6.10); RDW 12.7 % (11.5-14.5); WBC 15.5 10x3/uL (4.8-10.8)
[2018-01-30 07:27] LABS: BILIRUBIN - TOTAL 0.76 mg/dL (0.2-1.3); CARBON DIOXIDE 27.4 mmol/L (21.0-32.0); CREATININE - SERUM 1.5 mg/dL (0.6-1.3); PROTEIN - SERUM 4.8 g/dL (6.4-8.2)
[2018-01-30 07:28] LABS: ANION GAP 12.5 mmol/L (8-16); CALCIUM 6.9 mg/dL (8.5-10.1); POTASSIUM - SERUM 3.9 mmol/L (3.5-5.1)
[2018-01-31] VITALS (24 sets, daily range): BP systolic 118–164; BP diastolic 54–83
[2018-01-31 07:42] LABS: BASOPHILS 0.1 % (0-2); EOSINOPHILS 1.5 % (0-7); IMMATURE GRANULOCYTES 1.6 % (0-5); LYMPHOCYTES 7.1 % (15-50); MCH 30.1 pg (26.0-34.0); MCHC 34.1 g/dL (31.0-37.0); MCV 88.2 fL (80.0-100.0); MEAN PLATELET VOLUME 9.2 fL (7.4-10.4); NEUTROPHILS 78.7 % (40-80); RDW 13.6 % (11.5-14.5); WBC 14.4 10x3/uL (4.8-10.8)
[2018-01-31 07:53] LABS: HEMATOCRIT 30.5 % (42.0-54.0); HEMOGLOBIN 10.4 g/dL (13.5-17.5); PLATELET COUNT 217 10x3/uL (130-400); RBC 3.46 10x6/uL (4.20-6.10)
[2018-01-31 07:58] LABS: ANION GAP 9.5 mmol/L (8-16); CALCIUM 7.7 mg/dL (8.5-10.1); CARBON DIOXIDE 31.5 mmol/L (21.0-32.0); CREATININE - SERUM 1.6 mg/dL (0.6-1.3); VANCOMYCIN - TROUGH 7.9 ug/mL (10.0-20.0)
[2018-02-01] VITALS (9 sets, daily range): BP systolic 126–148; BP diastolic 51–92
[2018-02-01 06:26] LABS: BASOPHILS 0.2 % (0-2); EOSINOPHILS 3.7 % (0-7); HEMATOCRIT 30.9 % (42.0-54.0); HEMOGLOBIN 10.6 g/dL (13.5-17.5); IMMATURE GRANULOCYTES 1.9 % (0-5); MCH 29.9 pg (26.0-34.0); MCHC 34.3 g/dL (31.0-37.0); MCV 87.3 fL (80.0-100.0); MEAN PLATELET VOLUME 9.1 fL (7.4-10.4); MONOCYTES 10.9 % (2-11); NEUTROPHILS 74.3 % (40-80); PLATELET COUNT 255 10x3/uL (130-400); RBC 3.54 10x6/uL (4.20-6.10); RDW 13.2 % (11.5-14.5); WBC 12.8 10x3/uL (4.8-10.8)
[2018-02-01 06:50] LABS: ANION GAP 6.9 mmol/L (8-16); CALCIUM 7.9 mg/dL (8.5-10.1); CARBON DIOXIDE 34.1 mmol/L (21.0-32.0); CREATININE - SERUM 1.7 mg/dL (0.6-1.3)
[2018-02-01] MEDS ORDERED: CORDARONE200 MG PO (11:41)
[2018-02-01] MEDS ORDERED: LASIX20 MG PO (11:45)
[2018-02-01] MEDS ORDERED: PERCOCET 5-3251 TAB PO (11:46)
[2018-02-01] MEDS ORDERED: PLAVIX75 MG PO (11:55)
[2018-02-01] MEDS ORDERED: K-DUR20 MEQ PO (12:05)
== END 2018-02-01 13:13 | disposition home or self-care (01) | DRG 235 ==
LOC: D.SDCHOLD 05:00 → D.CVICU 05:00 → D.SDCHOLD 07:30 → D.CVICU 11:43
PROVIDERS: Family Medicine; Internal Medicine Cardiovascular Disease; Thoracic Surgery (Cardiothoracic Vascular Surgery)
PROC: 021309W Bypass Coronary Artery, Four or More Arteries from Aorta with Autologous Venous Tissue, Open Approach (ICD-10-PCS; 2018-01-25)
PROC: 06BP4ZZ Excision of Right Saphenous Vein, Percutaneous Endoscopic Approach (ICD-10-PCS; 2018-01-25)
PROC: 5A1221Z Performance of Cardiac Output, Continuous (ICD-10-PCS; 2018-01-25)
PROC: B24BZZ4 Ultrasonography of Heart with Aorta, Transesophageal (ICD-10-PCS; 2018-01-25)
PROC: 02100Z9 Bypass Coronary Artery, One Artery from Left Internal Mammary, Open Approach (ICD-10-PCS; principal; 2018-01-25 07:30)
DX: I25.10 Atherosclerotic heart disease of native coronary artery without angina pectoris (principal); J18.9 Pneumonia, unspecified organism; F05 Delirium due to known physiological condition; K21.9 Gastro-esophageal reflux disease without esophagitis; I12.9 Hypertensive chronic kidney disease with stage 1 through stage 4 chronic kidney disease, or unspecified chronic kidney disease; N18.9 Chronic kidney disease, unspecified; J44.9 Chronic obstructive pulmonary disease, unspecified; F17.200 Nicotine dependence, unspecified, uncomplicated; D64.9 Anemia, unspecified

== ENCOUNTER → 2018-02-03 12:09 | Outpatient (CLI) | payer MEDICARE, OTHER ==
[2018-01-26 10:51] VITALS: BMI 30.7
[~2018-02-03 12:09] MED LIST changes: +CORDARONE200 MG PO; +K-DUR20 MEQ PO; +LASIX20 MG PO; +PERCOCET 5-3251 TAB PO; +PLAVIX75 MG PO
[2018-02-03 12:53] LABS: BASOPHILS 0.2 % (0-2); EOSINOPHILS 4.2 % (0-7); HEMATOCRIT 38.4 % (42.0-54.0); IMMATURE GRANULOCYTES 2.6 % (0-5); LYMPHOCYTES 8.7 % (15-50); MCH 30.1 pg (26.0-34.0); MCHC 33.9 g/dL (31.0-37.0); MCV 88.9 fL (80.0-100.0); MEAN PLATELET VOLUME 9.2 fL (7.4-10.4); MONOCYTES 8.4 % (2-11); NEUTROPHILS 75.9 % (40-80); RBC 4.32 10x6/uL (4.20-6.10); RDW 12.9 % (11.5-14.5); WBC 13.6 10x3/uL (4.8-10.8)
[2018-02-03 13:01] LABS: PLATELET COUNT 361 10x3/uL (130-400)
[2018-02-03 13:13] LABS: ANION GAP 11.6 mmol/L (8-16); CALCIUM 8.2 mg/dL (8.5-10.1); CARBON DIOXIDE 29.3 mmol/L (21.0-32.0); CREATININE - SERUM 1.6 mg/dL (0.6-1.3); POTASSIUM - SERUM 3.9 mmol/L (3.5-5.1)
== END | disposition home or self-care (01) ==
LOC: D.LAB 12:09
PROVIDERS: Thoracic Surgery (Cardiothoracic Vascular Surgery)
DX: I25.10 Atherosclerotic heart disease of native coronary artery without angina pectoris (principal); D64.9 Anemia, unspecified

== ENCOUNTER → 2018-02-23 09:12 | Outpatient (CLI) | payer MEDICARE, OTHER ==
[2018-01-26 10:51] VITALS: BMI 30.7
[2018-02-23 09:31] LABS: HEMATOCRIT 39.3 % (42.0-54.0); HEMOGLOBIN 13.3 g/dL (13.5-17.5); MCH 29.7 pg (26.0-34.0); MCHC 33.8 g/dL (31.0-37.0); MCV 87.7 fL (80.0-100.0); MEAN PLATELET VOLUME 8.6 fL (7.4-10.4); RBC 4.48 10x6/uL (4.20-6.10); RDW 13.1 % (11.5-14.5); WBC 9.3 10x3/uL (4.8-10.8)
[2018-02-23 09:51] LABS: ALBUMIN 3.3 g/dL (3.4-5.0); ANION GAP 10.4 mmol/L (8-16); BILIRUBIN - TOTAL 0.42 mg/dL (0.2-1.3); CALCIUM 8.4 mg/dL (8.5-10.1); CARBON DIOXIDE 27.5 mmol/L (21.0-32.0); CREATININE - SERUM 1.7 mg/dL (0.6-1.3); POTASSIUM - SERUM 3.9 mmol/L (3.5-5.1); PROTEIN - SERUM 7.1 g/dL (6.4-8.2)
== END | disposition home or self-care (01) ==
LOC: D.RAD 08:30
PROVIDERS: Thoracic Surgery (Cardiothoracic Vascular Surgery)
DX: J91.8 Pleural effusion in other conditions classified elsewhere (principal); D64.9 Anemia, unspecified

== ENCOUNTER → 2018-03-21 18:01 | Outpatient (CLI) | payer MEDICARE, OTHER ==
[2018-01-26 10:51] VITALS: BMI 30.7
[2018-03-21 19:40] LABS: ANION GAP 15.1 mmol/L (8-16); CALCIUM 8.6 mg/dL (8.5-10.1); CARBON DIOXIDE 27.8 mmol/L (21.0-32.0); CREATININE - SERUM 1.6 mg/dL (0.6-1.3); LDL-HDL RATIO 4.4 ratio (1.5-3.5); POTASSIUM - SERUM 4.9 mmol/L (3.5-5.1)
== END | disposition home or self-care (01) ==
LOC: D.LABREF 18:01
PROVIDERS: Internal Medicine Cardiovascular Disease
DX: I10 Essential (primary) hypertension (principal)

== ENCOUNTER → 2018-05-16 17:50 | Outpatient (CLI) | payer MEDICARE, OTHER ==
[2018-01-26 10:51] VITALS: BMI 30.7
[2018-05-16 18:35] LABS: CHOL - HDL RATIO 4.1 ratio (2.3-4.9)
== END | disposition home or self-care (01) ==
LOC: D.LDO 17:50
PROVIDERS: Internal Medicine Interventional Cardiology
DX: I10 Essential (primary) hypertension (principal)